=== PATIENT | male | born 1985 | race Caucasian/White ===

== ENCOUNTER 2023-02-13 16:19 | Emergency (ER) | payer MEDICARE, SELFPAY ==
[2023-02-13 16:47] VITALS: BP 124/62; PULSE 61; RESP 16; TEMP 37; O2SAT 100
--- NOTE | 2023-02-13 17:13 | ED.SKABFB ---
HPI - Skin/Abscess/Foreign Bdy General Chief complaint: Skin/Abscess/Foreign Body Stated complaint: Rash Time Seen by Provider: 02/13/23 17:13 Source: patient, RN notes reviewed and old records reviewed Mode of arrival: ambulatory Limitations: no limitations History of Present Illness HPI narrative: 37 year old male accompanied by his POA with complaints of patient having these red scaly lesions on the back of his head and neck for abount 10 days that are itchy and having some crusty drainage from area. 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 She states that areas have been cleansed with soap and water and some Neosporin has been applied. MD complaint: rash Onset (ago): day(s) (10) Location: head (posterior head area and neck) Quality: pruritic Associated symptoms: itching Treatments prior to arrival: other (cleansed with soap and water and Neosporin ointment applied) Related Data Home Medications Medication Instructions Recorded Confirmed cetirizine 10 mg tablet (Zyrtec) 10 mg PO DAILY 07/08/19 07/08/19 multivitamin with minerals-folic mg PO 07/08/19 acid 0.4 mg tablet (Adult One Daily Multivitamin) Allergies Allergy/AdvReac Type Severity Reaction Status Date / Time cefaclor Allergy Unknown Other Verified 02/13/23 17:00 Review of Systems Review of Systems: CONSTITUTIONAL: Denies fever, chills, or sweats. CARDIOVASCULAR: Denies chest pain, palpitations, or edema. RESPIRATORY: Denies cough or dyspnea. SKIN: Reports rash to the back of his neck and back of head irregular shaped with some crusting MUSCULOSKELETAL: Denies joint pain or myalgia. NEUROLOGIC: Denies headache, numbness, or weakness. All systems reviewed & are unremarkable except as noted in HPI and below PMFSH Past Medical History Medical History (Updated 02/15/23 @ 16:51 by Juany Sanz NP) Down syndrome high functioning Fracture of hand left Surgical History Surgical History (Updated 02/13/23 @ 17:17 by Juany Sanz NP) History of placement of ear tubes Family History Family History Father Asthma Family history of hypercholesterolemia Hypertension Social History Social History Smoking status: Never smoker Second hand tobacco smoke exposure: No Alcohol intake: never Comments At time of signature, agree with nursing past medical, surgical, social and family history. There is no relevant family history pertinent to the presenting complaint Exam Narrative: GENERAL: Well-appearing, well-nourished, and in no acute distress. HEAD: Normocephalic, atraumatic. EYES: PERRLA, conjunctivae clear, and EOMI. ENT: Mucous membranes moist. Oropharynx without edema, erythema or lesions. NECK: Supple. No lymphadenopathy CHEST: Clear to auscultation. No respiratory distress. HEART: Regular rate and rhythm. SKIN: Warm, dry.? Patches of irregular shaped lesions with some crusting and itching to sites.no present drainage noted. NEURO:? Alert and oriented x3. PSYCH: Normal mood and affect Course Course Emergency Course: Patient is aware of diagnosis, understands and agrees to treatment plan.? Anticipatory guidance given.? Patient agrees to follow-up as directed and is aware of reasons to seek care at the emergency department. Portions of this record may have been created with voice recognition software Level of Care: Express Care Visit Vital Signs Vital signs: Vital Signs Temperature 37.0 C 02/13/23 16:47 Pulse Rate 61 02/13/23 16:47 Respiratory Rate 16 02/13/23 16:47 Blood Pressure 124/62 02/13/23 16:47 Pulse Oximetry 100 02/13/23 16:47 Oxygen Delivery Room Air 02/13/23 16:47 Temperature 37.0 C 02/13/23 16:47 Pulse Rate 61 0
== END 2023-02-13 17:30 | disposition home or self-care (01) ==
PROVIDERS: Emergency Provider Registered Nurse; PCP Physician Assistant
DX: L01.00 Impetigo, unspecified (principal); Q90.9 Down syndrome, unspecified
CPT/HCPCS: 99213; G0463

== ENCOUNTER 2024-11-20 11:39 | Emergency (ER) | payer MEDICARE, MEDICAID, SELFPAY ==
--- NOTE | ~2024-11-20 | XR_ITS ---
EXAMINATION: XR chest 1V portable DATE: 11/20/2024 13:14 INDICATION: Stroke with right-sided facial droop TECHNIQUE: AP view of the chest was obtained. COMPARISON: None FINDINGS: The lungs are clear with no focal airspace opacities, pulmonary edema, pleural effusion or pneumothor ax. The cardiomediastinal silhouette is normal. Visualized bones and soft tissues are unremarkable. IMPRESSION: 1. No acute cardiopulmonary disease. Reviewed, dictated and finalized at location A.
--- NOTE | ~2024-11-20 | CT_ITS ---
CT ANGIOGRAM NECK AND HEAD History: Right-sided facial droop. Technique: Axial noncontrast imaging of the right performed. Serial spiral axial images through the h ead and neck were then obtained during arterial phase IV injection of 100 cc of Omnipaque 350. 3-D po stprocessing and MIP images were then reconstructed on the remote workstation. Dose reduction techniq ue was used on this scan by utilizing automated exposure control and iterative reconstruction techniq ue. The dose-length product (DLP) was 1519.15 mGy-cm. CTA neck findings: Bilateral vertebral arteries are patent. Bilateral common carotid, internal carot id, and external carotid arteries are patent. No large vessel occlusion or stenosis. No aneurysm. The proximal right internal carotid artery demonstrates 0% stenosis relative to the normal distal artery lumen diameter. The proximal left internal carotid artery demonstrates 0% stenosis relative to the n ormal distal artery lumen diameter. CTA head findings: Distal vertebral arteries, basilar artery, and posterior cerebral arteries are pat ent. Distal internal carotid arteries, middle cerebral arteries, and anterior cerebral arteries are p atent. No large vessel occlusion or stenosis. No aneurysm. Axial noncontrast imaging of the brain is unremarkable. No acute infarct, intracranial hemorrhage, or mass lesion seen. No mass effect or midline shift. Monet differentiation intact. The ventricles and s ubarachnoid spaces are unremarkable. Paranasal sinuses are clear. Calvarium intact. Impression: Unremarkable exam. Reviewed, dictated and finalized at location . Impression: Unremarkable exam.
[2024-11-20 11:45] VITALS: BP 128/81; PULSE 69; RESP 16; TEMP 36.8; O2SAT 98
[2024-11-20 11:54] VITALS: BP 128/81; PULSE 67; PULSE 70; RESP 14; O2SAT 98
--- NOTE | 2024-11-20 12:16 | ECG_ITS ---
Test Date: 2024-11-20 12:41:37 Measurements Intervals [place] Rate: 65 P: 10 TN: 163 QRS: 11 QRSD: 101 T: 4 QT: 374 QTc: 389 Interpretive Statements SINUS RHYTHM CONSIDER INFERIOR INFARCT, AGE INDETERMINATE BASELINE ARTIFACT- I, III, AVR, AVL, AVF ABNORMAL ECG Electronically Signed On 11-20-2024 12:51:28 CDT by Dank Peter D.O.
[2024-11-20 12:30] LABS: Glucose Point of Care 70 mg/dl (65-105)
[2024-11-20] MEDS: predniSONE 20 MG TABLET 80 MG PO (12:31)
[2024-11-20 12:36] LABS: Basophils Absolute Auto 0.1 K/mm3 (0.0-0.1); Basophils Percent Auto 1.1 % (0.2-1.2); Eosinophils Absolute Auto 0.1 K/mm3 (0-0.3); Eosinophils Percent Auto 1.1 % (0-4.4); Hematocrit 54.6 % (42.0-52.0); Hemoglobin 18.7 g/dL (14.0-18.0); Immature Granulocyte Absolute 0.02 K/mm3 (0.00-0.031); Immature Granulocyte Percent A 0.3 % (0-0.5); Lymphocytes Percent Auto 37.4 % (18.3-44.2); Mean Corpuscular HGB Conc 34.2 g/dl (32-36); Mean Corpuscular Hemoglobin 32.9 pg (26-34); Mean Platelet Volume 10.1 fl (7.4-10.4); Monocytes Absolute Auto 0.8 K/mm3 (0.1-0.6); Monocytes Percent Auto 11.7 % (2.6-8.5); Neutrophils Absolute Auto 3.1 K/mm3 (1.3-6.7); Neutrophils Percent Auto 48.4 % (45.5-73.1); Platelet Count Result 173 k/mm3 (150-375); Red Blood Count 5.69 M/mm3 (4.6-6.20); Red Cell Distribution Width 13.2 % (11.5-14.5); White Blood Count 6.4 K/mm3 (4.5-10.0)
[2024-11-20 12:48] VITALS: BP 125/80; PULSE 66; RESP 14; O2SAT 99
[2024-11-20 12:55] LABS: Alanine Aminotransferase 61 U/L (6-50); Albumin Level 4.4 g/dL (3.5-5.1); Alkaline Phosphatase 77 U/L (38-126); Anion Gap 11 mmol/L (4-12); Aspartate Amino Transferase 35 U/L (17-59); Bilirubin,Total 0.6 mg/dL (0.2-1.3); Blood Urea Nitrogen 18 mg/dL (9-20); Calcium 9.4 mg/dL (8.4-10.2); Carbon Dioxide 27 mmol/L (22-30); Chloride 104 mmol/L (98-107); Estimated CRCL calculation 105 ml/min; Estimated Glomerular Filt Rate > 60; Glucose 75 mg/dL (65-110); Magnesium 2.3 mg/dL (1.6-2.3); Potassium 3.9 mmol/L (3.4-5.0); Sodium 142 mmol/L (137-145); Total Protein 7.7 g/dL (6.3-8.2)
--- OUTSIDE RECORDS SUMMARY | 2024-11-20 13:12 | XMS_ITS | Referral Summary ---
Author Organization [facility] [place] [address] [facility] Address [address] [place] [address] Care Team Providers Care Manager Sterile Name Role Phone Maday Oliveros Primary Care Provider [phone]- [phone] Encounters Date Type Department Care Team Description 08/22/2024 Results Follow-Up [facility] Internal Medicine at [place] [address] [facility] [address] [place] [address] Maday Oliveros PA MMR (IGG) PANEL (MEASLES, MUMPS, RUBELLA) from Last 3 Months Allergies No known active allergies Medications ascorbic acid (VITAMIN C) 500 mg tablet,chewable Acti ve multivitamin capsule Take 1 capsule by mouth daily Active cetirizine (ZyrTEC) 10 mg tablet Take 1 tablet (10 mg total) by mouth daily Active coenzyme Q10 200 mg capsule Take 1 capsule (200 mg total) by mouth daily Active mupirocin (BACTROBAN) 2 % ointmentIndicat ions:Folliculit is Apply topically 3 (three) times a day 22 g 03/29/20 23 Active sulfacetamide (BLEPH-10) 10 % ophthalmic solutionIndicat ions:[place] eye disease, unspecified laterality One drop into affected eye QID x 7 days 15 mL 11/11/19 24 Active rosuvastatin (CRESTOR) 5 mg tablet TAKE 1 TABLET(5 MG) BY MOUTH DAILY 90 tablet 2 03/15/20 24 Active fluticasone propionate (FLONASE) 50 mcg/actuation nasal spray SHAKE LIQUID AND USE 2 SPRAYS IN EACH NOSTRIL DAILY 16 g 1 08/07/19 25 Active triamcinolone (KENALOG) 0.1 % cream Apply to affected area 1-2 times daily as needed. 30 g 1 08/15/19 25 025 Active scopolamine 1 mg over 3 days patch [address] 1 patch on the skin every third day as needed (nausea) 4 patch 1 08/15/19 25 Active valACYclovir (VALTREX) 1 gram tablet TAKE 1 TABLET(1000 MG) BY MOUTH DAILY 90 tablet 1 10/31/19 25 Active valACYclovir (VALTREX) 1 gram tablet TAKE 1 TABLET(1000 MG) BY MOUTH DAILY 90 tablet 1 05/03/20 24 025 Discontinued Active Problems Problem Noted Date Diagnosed Date Immunity status testing 08/26/2024 Assessment & Plan (08/28/2024 12:25 AM CDT): Patient's guardian is concerned about measles exposure and would like to confirm immunity. Will check IgG 4 MMR Obesity (BMI 30-39.9) 03/29/2023 Assessment & Plan (08/14/2024 8:39 AM VOICE NETWORK ENGINEER): Discussed the patient's BMI. The BMI is above average. BMI management plan is completed. BMI Follow-up includes: nutrition counseling, exercise counseling and education provided. Assessment & Plan (03/29/2023 9:07 AM CDT): Discussed the patient's BMI. The BMI is above average. BMI management plan is completed. BMI Follow-up includes: nutrition counseling, exercise counseling and education provided. Abnormal CBC 03/29/2023 Assessment & Plan (08/28/2024 12:25 AM CDT): This is a significant, separately identifiable problem that was evaluated and managed on the same day as the wellness exam Patient has had increasingly elevated hemoglobin hematocrit. 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 This usually pulls out hemochromatosis. Liver ultrasound did not show any acute abnormalities. Will discuss further with Dr. Whitehead and to develop a plan to determine specialty referral as could consider hepatology versus hematology. Assessment & Plan (05/29/2024 12:07 PM VOICE NETWORK ENGINEER): Patient has had an abnormal CBC with elevated hemoglobin hematocrit. Patient is heterozygous for hemochromatosis gene. It does appear that he may be snoring iron. He has no symptoms. No icterus or jaundice. Will plan to get iron panel when he returns from [place] as he is going there for the holidays. Assessment & Plan (03/29/2023 9:37 AM CDT): Patient's hemoglobin hematocrit are upper end of normal and elevated even a little more this last draw. Will check 1 more time. Patient does eat a lot of meat. Will through an iron panel on also. Guardian is not sure if there is any history of hemochromatosis Folliculitis 03/29/2023 Assessment & Plan (08/28/2024 12:25 AM CDT): This is a significant, separately identifiable problem that was evaluated and managed on the same day as the wellness exam Folliculitis as the base of the brar. He has responded well to steroid creams in the past so patient requests. If it persists may need to have little antifungal. Assessment & Plan (03/29/2023 9:37 AM CDT): Folliculitis on the back of the neck. Responded well to Bactroban after a course of Keflex. Will provided additional tube Medicare annual wellness visit, initial 12/21/19 Assessment & Plan (08/28/2024 12:23 AM CDT): Encouraged healthy lifestyle, good nutrition and exercise. Encouraged Calcium and Vitamin D and weight bearing exercise for bone health. Reviewed immunizations. Reviewed age appropirate screenings. Medicare Wellness Documentation is completed within the chart Assessment & Plan (12/20/2022 5:57 PM CDT): Encouraged healthy lifestyle, good nutrition and exercise. Encouraged Calcium and Vitamin D and weight bearing exercise for bone health. Reviewed immunizations. Reviewed age appropirate screenings. Medicare Wellness Documentation is completed within the chart BMI 32.0-32.9,adult 04/20/2022 Assessment & Plan (08/14/2024 8:38 AM VOICE NETWORK ENGINEER): Discussed the patient's BMI. The BMI is above average. BMI management plan is completed. BMI Follow-up includes: nutrition counseling, exercise counseling and education provided. Assessment & Plan (04/20/2022 7:12 AM VOICE NETWORK ENGINEER): BMI Follow-up includes: Discussed diet and exercising counseling. History of 2019 novel coronavirus disease (COVID -19) 08/16/2021 Overview (08/16/2021): 06/2021 Assessment & Plan (08/16/2021 8:22 PM VOICE NETWORK ENGINEER): He is fully recovered from the COVID he had a few months ago while in [place]. He is guarding 1 make sure his lungs were clear they are. Continue to monitor follow-up if there are any more concerns Scalp lesion 05/11/2021 Assessment & Plan (05/11/2021 3:53 PM VOICE NETWORK ENGINEER): Refer to Derm for further evaluation Cracked lips 02/09/2021 Assessment & Plan (02/09/2021 9:39 AM CDT): Suspect secondary to him licking them and with Downs, difficult for him not to. Will have ENT address to see if has any other ideas since I am referring for hearing evaluation. 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 Continue daily suppression. Assessment & Plan (08/27/2020 9:28 AM CDT): [id number] are + for IgG --- Discussed using antiviral for prevention. Valtrex 500mg one daily Hyperglycemia 08/18/2020 Assessment & Plan (08/28/2024 12:23 AM CDT): Pre-diabetes/hyperglycemia is a precursor to Dm. Stressed importance of working on diet (decrease your simple sugars and one carbohydrate with each meal) and increase you exercise to achieve weight loss and this will help prevent you from progressing to diabetes. Assessment & Plan (12/20/2022 5:58 PM CDT): Pre-diabetes/hyperglycemia is a precursor to Dm. Stressed importance of working on diet (decrease your simple sugars and one carbohydrate with each meal) and increase you exercise to achieve weight loss and this will help prevent you from progressing to diabetes. Assessment & Plan (08/16/2021 8:22 PM VOICE NETWORK ENGINEER): Check labs Assessment & Plan (08/18/2020 8:13 PM VOICE NETWORK ENGINEER): Pre-diabetes/hyperglycemia is a precursor to Dm. Stressed importance of working on diet (decrease your simple sugars and one carbohydrate with each meal) and increase you exercise to achieve weight loss and this will help prevent you from progressing to diabetes. Fatigue 08/18/2020 Assessment & Plan (12/20/2022 5:58 PM CDT): Probably multifactorial. Check labs and followup to re-evaluate Assessment & Plan (08/16/2021 8:22 PM VOICE NETWORK ENGINEER): Probably multifactorial. Check labs and followup to re-evaluate Assessment & Plan (08/18/2020 8:13 PM VOICE NETWORK ENGINEER): Probably multifactorial. Check labs and followup to re-evaluate Lip lesion 08/18/2020 Assessment & Plan (08/27/2020 9:26 AM CDT): Suspect HSV Assessment & Plan (08/18/2020 8:24 PM VOICE NETWORK ENGINEER): Unknown etiology---HSV vs angioedema vs allergies vs parotitis vs other cause. Will check HSV IgG and IgM for 1 and 2. If positive, will consider Valtrex for prevention of cold sores. Start antibiotic due to possible parotitis. Discussed warning signs of breathing issues/angioedema/allergies If notes any, he is to go to the ER. Continue Zyrtec. Start singulair and monitor closely. May consider referral for another opinion regarding sxs pending labs and response to medication. Seasonal allergies 02/04/2020 Assessment & Plan (03/30/2020 1:11 PM CDT): Continue otc regimen Assessment & Plan (02/04/2020 1:29 PM CDT): Continue otc regimen Mixed hyperlipidemia 02/04/2020 Assessment & Plan (08/28/2024 12:23 AM CDT): Encouraged patient to follow low fat/low chol diet like the Mediterranean diet. Increase good fats in the diet. Increase exercise. Monitor labs as needed. Continue Crestor 5 Assessment & Plan (03/29/2023 9:38 AM CDT): orEncouraged patient to follow low fat/low chol diet like the Mediterranean diet. Increase good fats in the diet. Increase exercise. Monitor labs as needed. Assessment & Plan (12/20/2022 5:57 PM CDT): Encouraged patient to follow low fat/low chol diet like the Mediterranean diet. Increase good fats in the diet. Increase exercise. Monitor labs as needed. Continue Crestor and Co Q10 Assessment & Plan (04/26/2022 5:34 PM VOICE NETWORK ENGINEER): Encouraged patient to follow low fat/low chol diet like the Mediterranean diet. Increase good fats in the diet. Increase exercise. Monitor labs as needed. Crestor 5mg Assessment & Plan (08/16/2021 8:22 PM VOICE NETWORK ENGINEER): Check labs Assessment & Plan (02/09/2021 9:38 AM CDT): Encouraged patient to follow fat/low chol diet like the Mediterranean diet. Increase good fats in the diet. Increase exercise. Monitor labs as needed. Continue crestor Assessment & Plan (08/27/2020 9:21 AM CDT): Encouraged patient to follow fat/low chol diet like the Mediterranean diet. Increase good fats in the diet. Increase exercise. Monitor labs as needed. Will start Crestor and CoQ10. Reviewed risks, benefit, alternatives, side effects and proper use. Recheck labs in 4 months to reassess Assessment & Plan (08/18/2020 8:13 PM VOICE NETWORK ENGINEER): Encouraged patient to follow fat/low chol diet like the Mediterranean diet. Increase good fats in the diet. Increase exercise. Monitor labs as needed. Assessment & Plan (03/30/2020 1:11 PM CDT): Encouraged patient to follow fat/low chol diet like the Mediterranean diet. Increase good fats in the diet. Increase exercise. Monitor labs as needed. Working on weight loss and doing well Assessment & Plan (02/04/2020 1:27 PM CDT): Encouraged patient to continue low fat/low chol diet. Continue exercise. Increase good fats in the diet. Monitor labs as needed. Down syndrome 11/23/2019 Assessment & Plan (08/28/2024 12:23 AM CDT): No change in his down syndrome. He is in a safe loving home with his guardians. He is very active with work as well as social activities. Assessment & Plan (12/20/2022 5:58 PM CDT): No change in his down syndrome. He is in a safe loving home with his guardians. He is very active with work as well as social activities. Assessment & Plan (04/26/2022 5:34 PM VOICE NETWORK ENGINEER): No change in status Assessment & Plan (05/11/2021 3:53 PM VOICE NETWORK ENGINEER): No change Assessment & Plan (02/09/2021 9:38 AM CDT): No change Assessment & Plan (08/27/2020 9:26 AM CDT): No changes Assessment & Plan (03/30/2020 1:11 PM CDT): No change Assessment & Plan (02/04/2020 1:30 PM CDT): Discussed with guardian at length the concerns about Josh being in a physical relationship and how that would affect them both. Encouraged to consider counseling for both as there are many ethical issues that also come into play. I will attempt to find an appropriate counselor and encourage them to contact the [facility] in [place]. Still awaiting records from previous PCP for immunizations, etc. Assessment & Plan (11/25/2019 1:57 PM CDT): No change Resolved Problems Problem Noted Date Diagnosed Date Resolved Date Acute right otitis media 05/29/2024 Assessment & Plan (05/29/2024 12:08 PM VOICE NETWORK ENGINEER): Patient has right otitis media. He is leaving for [place] at the end of the week and may have difficulty taking meds while he is there. Will go ahead and put him on Z-Bienvenido as directed. Continue eupy-iji-finwriz cough cold medicine as needed. Call if symptoms worsen or do not resolve He also notices a drippy nose. Will send out some Flonase Acute cough 05/29/2024 08/26/2024 Assessment & Plan (05/29/2024 12:08 PM VOICE NETWORK ENGINEER): COVID and flu a and B were negative today in the office BMI 33.0-33.9,adult 03/29/2023 08/27/19 25 Assessment & Plan (03/29/2023 9:07 AM CDT): Discussed the patient's BMI. The BMI is above average. BMI management plan is completed. BMI Follow-up includes: nutrition counseling, exercise counseling and education provided. Need for immunization against influenza 03/29/2023 08/26/2024 Assessment & Plan (03/29/2023 9:37 AM CDT): Flu vaccine updated in the office today Obesity (BMI 30-39.9) 12/16/20222022 Assessment & Plan (12/20/2022 5:57 PM CDT): Discussed the patient's BMI. The BMI is above average. BMI management plan is completed. BMI Follow-up includes: nutrition counseling, exercise counseling and education provided. Encouraged increased exercise as he is not as active as he had been. BMI 33.0-33.9,adult 12/16/2022 03/29/20 Assessment & Plan (12/16/2022 3:48 PM CDT): Discussed the patient's BMI. The BMI is above average. BMI management plan is completed. BMI Follow-up includes: nutrition counseling, exercise counseling and education provided. Dysfunction of both eustachian tubes 07/15/2022 08/28/2024 Assessment & Plan (01/18/2023 7:04 PM CDT): Both ears look fine. Tubes are in good position. Needs no intervention. Follow- up in 6 months. Assessment & Plan (07/15/2022 8:14 PM VOICE NETWORK ENGINEER): The tubes look like they are functioning well and I do not find any significant problems. I recommended a follow-up in 6 months. Impacted cerumen of left ear 07/15/2022 08/28/2024 Assessment & Plan (07/15/2022 8:14 PM VOICE NETWORK ENGINEER): This was cleaned without difficulty mostly using suction and a loop. He tolerated well. Everything looks good. Obesity (BMI 30-39.9) 07/10/20212022 Assessment & Plan (04/20/2022 7:12 AM VOICE NETWORK ENGINEER): BMI Follow-up includes: Discussed diet and exercising counseling. Assessment & Plan (07/10/2021 2:17 PM VOICE NETWORK ENGINEER): Obesity is unchanged. Discussed the patient's BMI. The BMI is above average. BMI management plan is completed. BMI Follow-up includes: nutrition counseling, exercise counseling and education provided. BMI 33.0-33.9,adult 07/10/2021 04/20/20 Assessment & Plan (07/10/2021 2:17 PM VOICE NETWORK ENGINEER): Obesity is unchanged. Discussed the patient's BMI. The BMI is above average. BMI management plan is completed. BMI Follow-up includes: nutrition counseling, exercise counseling and education provided. Obesity (BMI 30-39.9) 04/23/20212021 Assessment & Plan (04/23/2021 3:37 PM VOICE NETWORK ENGINEER): Obesity is unchanged. Discussed the patient's BMI. The BMI is above average. BMI management plan is completed. BMI Follow-up includes: nutrition counseling, exercise counseling and education provided. BMI 33.0-33.9,adult 04/23/2021 07/10/19 22 Assessment & Plan (04/23/2021 3:37 PM VOICE NETWORK ENGINEER): Obesity is unchanged. Discussed the patient's BMI. The BMI is above average. BMI management plan is completed. BMI Follow-up includes: nutrition counseling, exercise counseling and education provided. Obesity (BMI 30-39.9) 02/03/20212020 Assessment & Plan (02/03/2021 4:43 PM CDT): Obesity is unchanged. Discussed the patient's BMI. The BMI is above average. BMI management plan is completed. BMI Follow-up includes: nutrition counseling, exercise counseling and education provided. BMI 33.0-33.9,adult 02/03/2021 04/23/20 21 Assessment & Plan (02/03/2021 4:44 PM CDT): Obesity is unchanged. Discussed the patient's BMI. The BMI is above average. BMI management plan is completed. BMI Follow-up includes: nutrition counseling, exercise counseling and education provided. Hordeolum externum of right lower eyelid 11/13/2020 02/09/2021 Assessment & Plan (11/13/2020 3:38 PM CDT): Advised washing face and eyelids twice daily. Advised antibiotic x7 days. We discussed follow-up if symptoms are not improving, sooner if worsening. BMI 33.0-33.9,adult 08/27/2020 02/04/20 Assessment & Plan (11/13/2020 2:05 PM CDT): Obesity is unchanged. Discussed the patient's BMI. The BMI is above average. BMI management plan is completed. BMI Follow-up includes: nutrition counseling, exercise counseling and education provided. Assessment & Plan (08/27/2020 8:05 AM CDT): Obesity is unchanged. Discussed the patient's BMI. The BMI is above average. BMI management plan is completed. BMI Follow-up includes: nutrition counseling, exercise counseling and education provided. Obesity (BMI 30-39.9) 08/27/20202020 Assessment & Plan (11/13/2020 2:05 PM CDT): Obesity is unchanged. Discussed the patient's BMI. The BMI is above average. BMI management plan is completed. BMI Follow-up includes: nutrition counseling, exercise counseling and education provided. Assessment & Plan (08/27/2020 8:04 AM CDT): Obesity is unchanged. Discussed the patient's BMI. The BMI is above average. BMI management plan is completed. BMI Follow-up includes: nutrition counseling, exercise counseling and education provided. Obesity (BMI 30-39.9) 08/12/20202020 Assessment & Plan (08/12/2020 9:05 AM VOICE NETWORK ENGINEER): Obesity is unchanged. Discussed the patient's BMI. The BMI is above average. BMI management plan is completed. BMI Follow-up includes: nutrition counseling, exercise counseling and education provided. BMI 33.0-33.9,adult 08/12/2020 08/28/19 21 Assessment & Plan (08/12/2020 9:05 AM VOICE NETWORK ENGINEER): Obesity is unchanged. Discussed the patient's BMI. The BMI is above average. BMI management plan is completed. BMI Follow-up includes: nutrition counseling, exercise counseling and education provided. Annual physical exam 07/23/2020 022 Assessment & Plan (02/09/2021 9:40 AM CDT): Encouraged healthy lifestyle, good nutrition and exercise. Encouraged Calcium and Vitamin D and weight bearing exercise for bone health. Reviewed immunizations Reviewed age appropirate screenings. Flu vaccine need 03/30/2020 07/23/2020 Assessment & Plan (03/30/2020 1:11 PM CDT): Updated in office today Other fatigue 11/25/2019 02/04/2020 Assessment & Plan (11/25/2019 1:57 PM CDT): Check labs Diabetes mellitus screening 11/25/2019 02/04/2020 Assessment & Plan (11/25/2019 1:58 PM CDT): Check labs Lipid screening 11/25/2019 02/04/2020 Assessment & Plan (11/25/2019 1:58 PM CDT): Check labs Acute swimmer's ear of right side 11/25/2019 02/04/2020 Assessment & Plan (11/25/2019 1:57 PM CDT): Keep ear dry. Recommend ear plugs due to the Downs anatomy. Cortisporin otic x 1 week. Call if sxs worsen or don't resolve. Immunizations Immunization Administration Dates Next Due COVID-19 mRNA (PFIZER) 0.3 m L (30 mcg) vaccine (12 years and up) 03/07/2024 DTaP 5 Pertussis 09/30/1990, 9,01/18/1987,08/03,05/18/1986 Hep B, Adolescent or Pediatric 04/28/1996,1995 Hep B, Unspecified 10/13/1996,04/28/1996, 996 HiB 02/22/1989 Influenza, Quadrivalent, Spl it, Intramuscular 03/27/2019 Influenza, Quadrivalent, Spl it, Preservative Free, Intramuscular 03/29/2023,04/13/2022,05/01/2021,03/30,03/27/2019,04/01/2018 Influenza, Trivalent, Preser vative Free, Intramuscular 04/03/2024,04/07/2016 Influenza, Unspecified 04/01/2018 MMR 12/12/1991,07/17/1988 OPV 09/30/1990, 7,1985,08/11,1985 Pfizer SARS-CoV-2 Monovalent Vaccination (12+ Yrs) PURPLE 03/23/2023,08/07/2022,01/23/2022,09/17,08/26/2020 Td, adsorbed 04/08/2018,03/03/2002 Tdap 10/04/2018 Social History Tobacco Use Types Packs/Day Years Used Date Smoking Tobacco: Never Smokeless Tobacco: Never Tobacco Cessation:Counseling Given: Not Answered Alcohol Use Standard Drinks/Week Comments Yes 1 (1 standard drink = 0.6 oz pur e alcohol) rarely AUDIT-C Answer Date Recorded Q1: How often do you have a drink containing alcohol? Never 08/14/2024 Q2: How many drinks containi ng alcohol do you have on a typical day when you are drinking? Patient does not drink Q3: How often do you have si x or more drinks on one occasion? Never 08/14/2024 PHQ-2 Answer Date Recorded PHQ-2 Total Score (If total score is 3 or more points, staff should administer the PHQ-9) 0 08/14/2024 Sex and Gender Information Value Date Recorded Sex Assigned at Not on file Legal Sex Male 11:23 PM VOICE NETWORK ENGINEER Gender Identity Not on file Sexual Orientation Not on file Occupation Industry Job Start Date Job End Date Disabed Not on file Not on file Not on file Last Filed Vital Signs Vital Sign Reading Time Taken Comments Blood Pressure 118/60 08/14/2024 8:34 AM VOICE NETWORK ENGINEER Pulse 71 08/14/2024 8:34 AM VOICE NETWORK ENGINEER Temperature 37.1 C (98.8 F) 08/14/2024 8:34 AM VOICE NETWORK ENGINEER Respiratory Rate 24 05/29/2024 10:29 AM VOICE NETWORK ENGINEER Oxygen Saturation 95% 08/14/2024 8:34 AM VOICE NETWORK ENGINEER Inhaled Oxygen Concentration - - Weight 89.8 kg (198 lb) 08/14/2024 8:34 AM VOICE NETWORK ENGINEER Height 165.1 cm (5' 5) 08/14/2024 8:34 AM VOICE NETWORK ENGINEER Body Mass Index 32.95 08/14/2024 8:34 AM VOICE NETWORK ENGINEER Plan of Treatment Not on file Procedures Procedure Name Priority Date/Time Associated Diagnosis Comments MMR (IGG) PANEL (MEASLES, MUMPS, RUBELLA) Routine 08/21/2024 1:57 PM CDT Immunity status testing from Last 3 Months Results * (ABNORMAL) MMR (IGG) PANEL (MEASLES, MUMPS, RUBELLA) (08/21/2024 1:57 PM CDT) Measles (Rubeola) IgG 48.40 AU/mL [facility] Comment: AU/mL Interpretation ----- <13.50 Not consistent with immunity 13.50-16.49 Equivocal >16.49 Consistent with immunity The presence of measles IgG suggests immunization or past or current infection with measles virus. For additional information, please refer to http://education.Element ID/faq/XYS446 (This link is being provided for informational/ educational purposes only.) Mumps IgG <9.00(L) AU/mL [facility] Comment: AU/mL Interpretation ------- <9.00 Not consistent with immunity 9.00-10.99 Equivocal >10.99 Consistent with immunity The presence of mumps IgG antibody suggests immunization or past or current infection with mumps virus. Rubella IgG 0.99(L) Index [facility] Comment: Index Interpretation ----- <0.90 Not consistent with immunity 0.90-0.99 Equivocal > or = 1.00 Consistent with immunity The presence of rubella IgG antibody suggests immunization or past or current infection with rubella virus. Blood 08/21/2024 1:57 PM CDT 08/21/2024 1:58 PM CDT Narrative [facility] - 08/22/2024 6:06 AM CDT FASTING:NO FASTING: NO Maday [facility] BLOOD ORDERABLES Final Result [facility] [id number] [facility] [place] [address] from Last 3 Months Insurance MEDICARE [facility] MEDICARE [facility] MEDICARE Care Teams Manager Sterile Relationship Specialty Start Date End Date Maday Oliveros PA [address] [facility] [address] [place], [place] [id number] PCP - General Internal Medicine 11/23/19
--- OUTSIDE RECORDS SUMMARY | 2024-11-20 13:12 | XMS_ITS | Continuity of Care Document ---
Author Organization [facility] [place] Address [address] [place] [address] [place] [address] Phone Care Team Providers Care Power Shovel Operator Helper Name Role Phone Mari Lionhil Unavailable Unavailable Procedures Procedure Date Eye Exam, New Patient Advance Directives Directive Yes / No Effective Date File Name No Information Encounters Encounter Description Practice Location Reason(s) For Visit Diagnoses Date Provider Providers Copied on Encounter [facility], [id number] [place] [address] [address], [place], [place], [id number], [place] tel:[phone] [facility] No Information [address] [facility] [address], [address], [place]. tel:[phone] Referring Provider: Salazar Yeh OD, [address], [address]. tel:[phone] Family History Family Member Type Diagnosis Age At Onset No Information Payers Payer name Insurance type Covered alliance party ID Authoriza tion(s) Medicaid [facility] [id number] Social History Type Description Quantity Date Captured Comments Sex Male Smoking Status No Information Chief Complaint And Reason For Visit No Information Reason For Referral Reason For Referral No Information History Of Present Illness Encounter Date Complaint History Of Prese nt Illness No Information Functional Status Date Functional Assessmen t No Information Instructions Date Instruction Additional Infor mation No Information Assessments Type Assessment Date No Information Patient Care Teams Name Effective Dates (start - stop) Status Members No Information
--- OUTSIDE RECORDS SUMMARY | 2024-11-20 13:12 | XMS_ITS | Clinical Summary ---
Author Organization [facility] Address [address] [place] [address] Care Team Providers Care Insurance And Financial Services Agent Name Role Phone Maday Oliveros Primary Care Provider [phone] Allergies No known active allergies Medications ascorbic [...] Active sulfacetamide (BLEPH-10) 10 % ophthalmic solutionIndicat ions:[place] eye disease, unspecified laterality One drop into [...] 03/29/2023 Assessment & Plan (08/14/2024 8:39 AM CAR CONSTRUCTION SUPERINTENDENT): Discussed the patient's BMI. The BMI is [...] hematology. Assessment & Plan (05/29/2024 12:07 PM CAR CONSTRUCTION SUPERINTENDENT): Patient has had an abnormal CBC with elevated hemoglobin hematocrit. Patient is heterozygous for hemochromatosis gene. It does appear that he may be snoring iron. He has no symptoms. No icterus or jaundice. Will plan to get iron panel when he returns from [place] as he is going there for the [...] 04/20/2022 Assessment & Plan (08/14/2024 8:38 AM CAR CONSTRUCTION SUPERINTENDENT): Discussed the patient's BMI. The BMI is above average. BMI management plan is completed. BMI Follow-up includes: nutrition counseling, exercise counseling and education provided. Assessment & Plan (04/20/2022 7:12 AM CAR CONSTRUCTION SUPERINTENDENT): BMI Follow-up includes: Discussed diet and exercising counseling. History of 2019 novel coronavirus disease (COVID -19) 08/16/2021 Overview (08/16/2021): 06/2021 Assessment & Plan (08/16/2021 8:22 PM CAR CONSTRUCTION SUPERINTENDENT): He is fully recovered from the COVID he had a few months ago while in [place]. He is guarding 1 make sure his lungs were clear they are. Continue to monitor follow-up if there are any more concerns Scalp lesion 05/11/2021 Assessment & Plan (05/11/2021 3:53 PM CAR CONSTRUCTION SUPERINTENDENT): Refer to Derm for further evaluation Cracked [...] daily Assessment & Plan (05/11/2021 3:53 PM CAR CONSTRUCTION SUPERINTENDENT): Increase Valtrexv to 1gm daily Keep lips moist and try to stop licking. 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 Continue daily suppression. Assessment & Plan (08/27/2020 9:28 AM CDT): [id number] are + for IgG --- Discussed using [...] diabetes. Assessment & Plan (08/16/2021 8:22 PM CAR CONSTRUCTION SUPERINTENDENT): Check labs Assessment & Plan (08/18/2020 8:13 PM CAR CONSTRUCTION SUPERINTENDENT): Pre-diabetes/hyperglycemia is a precursor to Dm. Stressed importance of working on diet (decrease your simple sugars and one carbohydrate with each meal) and increase you exercise to achieve weight loss and this will help prevent you from progressing to diabetes. Fatigue 08/18/2020 Assessment & Plan (12/20/2022 5:58 PM CDT): Probably multifactorial. Check labs and followup to re-evaluate Assessment & Plan (08/16/2021 8:22 PM CAR CONSTRUCTION SUPERINTENDENT): Probably multifactorial. Check labs and followup to re-evaluate Assessment & Plan (08/18/2020 8:13 PM CAR CONSTRUCTION SUPERINTENDENT): Probably multifactorial. 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 Increase good fats in the diet. Increase exercise. Monitor labs as needed. Crestor 5mg Assessment & Plan (08/16/2021 8:22 PM CAR CONSTRUCTION SUPERINTENDENT): Check labs Assessment & Plan (02/09/2021 9:38 [...] reassess Assessment & Plan (08/18/2020 8:13 PM CAR CONSTRUCTION SUPERINTENDENT): Encouraged patient to follow fat/low chol diet [...] activities. Assessment & Plan (04/26/2022 5:34 PM CAR CONSTRUCTION SUPERINTENDENT): No change in status Assessment & Plan (05/11/2021 3:53 PM CAR CONSTRUCTION SUPERINTENDENT): No change Assessment & Plan (02/09/2021 9:38 [...] counselor and encourage them to contact the [facility] in [place]. Still awaiting records from previous PCP for immunizations, etc. Assessment & Plan (11/25/2019 1:57 PM CDT): No change Resolved Problems Problem Noted Date Diagnosed Date Resolved Date Acute right otitis media 05/29/2024 Assessment & Plan (05/29/2024 12:08 PM CAR CONSTRUCTION SUPERINTENDENT): Patient has right otitis media. He is leaving for [place] at the end of the week and may have difficulty taking meds while he is there. Will go ahead and put him on Z-Bienvenido as directed. Continue ojez-ogk-xhdlvyd cough cold medicine as needed. Call if symptoms worsen or do not resolve He also notices a drippy nose. Will send out some Flonase Acute cough 05/29/2024 08/26/2024 Assessment & Plan (05/29/2024 12:08 PM CAR CONSTRUCTION SUPERINTENDENT): COVID and flu a and B were [...] he had been. BMI 33.0-33.9,adult 12/16/2022 03/29/20 23 Assessment & Plan (12/16/2022 3:48 PM CDT): [...] months. Assessment & Plan (07/15/2022 8:14 PM CAR CONSTRUCTION SUPERINTENDENT): The tubes look like they are functioning well and I do not find any significant problems. I recommended a follow-up in 6 months. Impacted cerumen of left ear 07/15/2022 08/28/2024 Assessment & Plan (07/15/2022 8:14 PM CAR CONSTRUCTION SUPERINTENDENT): This was cleaned without difficulty mostly using suction and a loop. He tolerated well. Everything looks good. Obesity (BMI 30-39.9) 07/10/20212022 Assessment & Plan (04/20/2022 7:12 AM CAR CONSTRUCTION SUPERINTENDENT): BMI Follow-up includes: Discussed diet and exercising counseling. Assessment & Plan (07/10/2021 2:17 PM CAR CONSTRUCTION SUPERINTENDENT): Obesity is unchanged. Discussed the patient's BMI. The BMI is above average. BMI management plan is completed. BMI Follow-up includes: nutrition counseling, exercise counseling and education provided. BMI 33.0-33.9,adult 07/10/2021 04/20/20 Assessment & Plan (07/10/2021 2:17 PM CAR CONSTRUCTION SUPERINTENDENT): Obesity is unchanged. Discussed the patient's BMI. The BMI is above average. BMI management plan is completed. BMI Follow-up includes: nutrition counseling, exercise counseling and education provided. Obesity (BMI 30-39.9) 04/23/20212021 Assessment & Plan (04/23/2021 3:37 PM CAR CONSTRUCTION SUPERINTENDENT): Obesity is unchanged. Discussed the patient's BMI. The BMI is above average. BMI management plan is completed. BMI Follow-up includes: nutrition counseling, exercise counseling and education provided. BMI 33.0-33.9,adult 04/23/2021 07/10/19 Assessment & Plan (04/23/2021 3:37 PM CAR CONSTRUCTION SUPERINTENDENT): Obesity is unchanged. Discussed the patient's BMI. [...] 08/12/20202020 Assessment & Plan (08/12/2020 9:05 AM CAR CONSTRUCTION SUPERINTENDENT): Obesity is unchanged. Discussed the patient's BMI. The BMI is above average. BMI management plan is completed. BMI Follow-up includes: nutrition counseling, exercise counseling and education provided. BMI 33.0-33.9,adult 08/12/2020 08/28/19 Assessment & Plan (08/12/2020 9:05 AM CAR CONSTRUCTION SUPERINTENDENT): Obesity is unchanged. Discussed the patient's BMI. [...] Call if sxs worsen or don't resolve. Encounters Date Type Department Care Team Description 08/22/2024 Results Follow-Up [facility] [place] [address] [place] [address] [address] [place] [address] Maday Oliveros PA MMR (IGG) PANEL (MEASLES, MUMPS, RUBELLA) from Last 3 Months Immunizations Immunization Administration Dates Next Due COVID-19 [...] Unspecified 04/01/2018 MMR 12/12/1991,07/17/1988 OPV 09/30/1990, 7,1985,08/11,1985 [place] SARS-CoV-2 Monovalent Vaccination (12+ Yrs) PURPLE 03/23/2023,08/07/2022,01/23/2022,09/17,08/26/2020 Td, adsorbed 04/08/2018,03/03/2002 Tdap 10/04/2018 Surgical History Surgery Date Site/Laterality Comments TYMPANOSTOMY TUBE PLACEMENT Medical History Medical History Date Comments Allergic rhinitis Down syndrome Ear problems HL (hearing loss) Family History Medical History Relation Name Comments Asthma Father Breast cancer Mother Relation Name Status Comments Father Mother Alive Social History Tobacco Use Types Packs/Day Years [...] on file Legal Sex Male 11:23 PM CAR CONSTRUCTION SUPERINTENDENT Gender Identity Not on file Sexual Orientation Not on file Occupation Industry Job Start Date Job End Date Disabed Not on file Not on file Not on file Obstetrics History Last Filed Vital Signs Vital Sign Reading Time Taken Comments Blood Pressure 118/60 08/14/2024 8:34 AM CAR CONSTRUCTION SUPERINTENDENT Pulse 71 08/14/2024 8:34 AM CAR CONSTRUCTION SUPERINTENDENT Temperature 37.1 C (98.8 F) 08/14/2024 8:34 AM CAR CONSTRUCTION SUPERINTENDENT Respiratory Rate 24 05/29/2024 10:29 AM CAR CONSTRUCTION SUPERINTENDENT Oxygen Saturation 95% 08/14/2024 8:34 AM CAR CONSTRUCTION SUPERINTENDENT Inhaled Oxygen Concentration - - Weight 89.8 kg (198 lb) 08/14/2024 8:34 AM CAR CONSTRUCTION SUPERINTENDENT Height 165.1 cm (5' 5) 08/14/2024 8:34 AM CAR CONSTRUCTION SUPERINTENDENT Body Mass Index 32.95 08/14/2024 8:34 AM CAR CONSTRUCTION SUPERINTENDENT Plan of Treatment Health Maintenance Due Date Last Done Comments Hepatitis C Screening 1985 Varicella Vaccines (1 of 2 - 13+ 2-dose series) 1998 Depression Screening 08/14/2025 08/14/2024, 05/29/2024, 03/29/2023, Additional history exists Regular Well Visit/Exam 18-64 08/14/2025 08/14/2024, 12/16/2022, 02/03/2021 DTaP/Tdap/Td Vaccine (7 - Td or Tdap) 10/04/2028 10/04/2018, 04/08/2018, 03/03/2002, Additional history exists Hepatitis B Screening Completed 10/13/1996 , 04/28/1996, 04/28/1996, Additional history exists Covid-19 Vaccine Completed 03/07/2024, 03/2023, 03/23/2023, Additional history exists Influenza Vaccine Completed 04/03/2024, , 04/13/2022, Additional history exists HPV Vaccines Aged Out No longer eligi ble based on patient's age to complete this topic Pneumococcal vaccine <65 Aged Out No longer eligible based on patient's age to complete this topic Procedures Procedure Name Priority Date/Time Associated Diagnosis Comments MMR (IGG) PANEL (MEASLES, MUMPS, RUBELLA) Routine 08/21/2024 1:57 PM CDT Immunity status testing from Last 3 Months Results * (ABNORMAL) MMR (IGG) PANEL (MEASLES, MUMPS, RUBELLA) (08/21/2024 1:57 PM CDT) Measles (Rubeola) IgG 48.40 AU/mL [facility] Comment: AU/mL Interpretation ----- <13.50 Not consistent with immunity 13.50-16.49 Equivocal >16.49 Consistent with immunity The presence of measles IgG suggests immunization or past or current infection with measles virus. For additional information, please refer to http://education.EXPO/faq/BTU979 (This link is being provided for informational/ educational purposes only.) Mumps IgG <9.00(L) AU/mL [facility] Comment: AU/mL Interpretation ------- <9.00 [...] Maday [facility] BLOOD ORDERABLES Final Result [facility] [address] [place] [address] from Last 3 Months Insurance MEDICARE [facility] MEDICARE [facility] MEDICARE [facility] Address: [address] [address] [place] [address] Care Teams Insurance And Financial Services Agent Relationship Specialty Start Date End Date Maday Oliveros PA [address] [place] [address] PCP - General Internal Medicine 11/23/19
--- OUTSIDE RECORDS SUMMARY | 2024-11-20 13:12 | XMS_ITS | Clinical Summary ---
Author Organization [facility] Address [address] [facility] [place] [address] Care Team Providers Care Bridge Builder Name Role Phone Yuli Fry MD Primary Care Provider [phone] Source Comments [facility] [employer],non-owned Affiliates and Associated Physician Practices is amultiple site organization consisting of ambulatory clinics and hospital sitesin [place] and [place]. This disclosure is being madepursuant to the Care Everywhere program and may not contain all information available regarding this patient. Last updated 18.[facility] [employer] Allergies No known active allergies Medications * Be aware that medications may not be up to date on this document. Alwaysverify current medications with the patient. 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 Allergic rhinitis due to pollen 05/13/2019 Social History Tobacco Use Types Packs/Day Years Used Date Smoking Tobacco: Never Smokeless Tobacco: Never Sex and Gender Information Value Date Recorded Sex Assigned at Not on file Legal Sex Male 3:21 PM CDT Gender Identity Not on file Sexual Orientation Not on file Last Filed Vital Signs Vital Sign Reading Time Taken Comments Blood Pressure 118/60 04/28/2019 2:01 PM PHOTO MACHINE OPERATOR Pulse 69 04/28/2019 2:01 PM PHOTO MACHINE OPERATOR Temperature 37.1 C (98.7 F) 04/28/2019 2:01 PM PHOTO MACHINE OPERATOR Respiratory Rate 20 04/28/2019 2:01 PM PHOTO MACHINE OPERATOR Oxygen Saturation 99% 04/28/2019 2:01 PM PHOTO MACHINE OPERATOR Inhaled Oxygen Concentration - - Weight 94.3 kg (208 lb) 04/28/2019 2:01 PM PHOTO MACHINE OPERATOR Height 166.4 cm (5' 5.5) 04/28/2019 2:01 PM PHOTO MACHINE OPERATOR Body Mass Index 34.09 04/28/2019 2:01 PM PHOTO MACHINE OPERATOR Plan of Treatment Health Maintenance Due Date Last Done Comments HIV SCREENING 2000 HEPATITIS C SCREENING 05/03/2003 DTAP/TDAP/TD VACCINES (1 - Tdap) 2004 HEPATITIS B VACCINE (1 of 3 - 19+ 3-dose series) 2004 COVID-19 VACCINE (1 - 2023-2 5 season) 2024 DEPRESSION SCREENING 06/14/2024 INFLUENZA VACCINE (Season Ended) 2025 ZOSTER VACCINE (1 of 2) 2035 HIB VACCINE Aged Out No longer eligi ble based on patient's age to complete this topic HPV VACCINE Aged Out No longer eligi ble based on patient's age to complete this topic MENINGOCOCCAL (Group B) VACC INE SHARED DECISION-MAKING Aged Out No longer eligibl e based on patient's age to complete this topic MENINGOCOCCAL GROUPS A/C/Y/W VACCINE Aged Out No longer eligible b ased on patient's age to complete this topic PNEUMOCOCCAL VACCINE Aged Out No long er eligible based on patient's age to complete this topic Insurance [facility] Care Teams Bridge Builder Relationship Specialty Start Date End Date Yuli Fry MD [address] [place] [address] PCP - General 04/28/19
--- OUTSIDE RECORDS SUMMARY | 2024-11-20 13:57 | XMS_ITS | Clinical Summary ---
Author Organization [facility] Address [address] [facility] [place] [address] Care Team Providers Care Display Director Name Role Phone Yuli Fry MD Primary Care Provider [phone] Source Comments [facility] [employer],non-owned Affiliates and Associated Physician Practices is amultiple site organization consisting of ambulatory clinics and hospital sitesin [place], [place], [place] and [place]. This disclosure is being madepursuant to the Care Everywhere program and may not contain all information available regarding this patient. Last updated 18.[facility] [employer] Allergies No known active allergies Medications * [...] Comments Blood Pressure 118/60 04/28/2019 2:01 PM ELEVATED MOTORMAN Pulse 69 04/28/2019 2:01 PM ELEVATED MOTORMAN Temperature 37.1 C (98.7 F) 04/28/2019 2:01 PM ELEVATED MOTORMAN Respiratory Rate 20 04/28/2019 2:01 PM ELEVATED MOTORMAN Oxygen Saturation 99% 04/28/2019 2:01 PM ELEVATED MOTORMAN Inhaled Oxygen Concentration - - Weight 94.3 kg (208 lb) 04/28/2019 2:01 PM ELEVATED MOTORMAN Height 166.4 cm (5' 5.5) 04/28/2019 2:01 PM ELEVATED MOTORMAN Body Mass Index 34.09 04/28/2019 2:01 PM ELEVATED MOTORMAN Plan of Treatment Health Maintenance Due Date [...] patient's age to complete this topic Insurance [facility] Care Teams Display Director Relationship Specialty Start Date End Date Yuli Fry MD [address] [place] [address] PCP - General 04/28/19
--- OUTSIDE RECORDS SUMMARY | 2024-11-20 13:57 | XMS_ITS | Continuity of Care Document ---
Author Organization [facility] Address [address] [place] [address] [place] [address] Phone Care Team Providers Care Sustainability Consultant Name Role Phone Mari Lionhil Unavailable Unavailable Procedures Procedure Date Eye Exam, New Patient Advance Directives Directive Yes / No Effective Date File Name No Information Encounters Encounter Description Practice Location Reason(s) For Visit Diagnoses Date Provider Providers Copied on Encounter [facility], [id number] [place] [address] [address], [place], [place], [id number], [place] tel:[phone] [facility] No Information [address] [facility] [address], [address], [place]. tel:[phone] Referring Provider: Salazar Yeh OD, [address], [address]. tel:[phone] Family History Family Member Type Diagnosis Age At Onset No Information Payers Payer name Insurance type Covered republican ID Authoriza tion(s) Medicaid [facility] [id number] Social History Type Description Quantity Date Captured [...]
--- OUTSIDE RECORDS SUMMARY | 2024-11-20 13:57 | XMS_ITS | Referral Summary ---
Author Organization [facility] [address] [facility] Address [address] [place] [address] Care Team Providers Care Firewood Cutter Name Role Phone Maday Oliveros Primary Care Provider [phone]- [phone] Encounters Date Type Department Care Team Description 08/22/2024 Results Follow-Up [facility] Internal Medicine at [place] [address] [facility] [address] [place] [address] Maday Oliveros PA MMR (IGG) [...] Active sulfacetamide (BLEPH-10) 10 % ophthalmic solutionIndicat ions:[place]ody eye disease, unspecified laterality One drop into [...] 03/29/2023 Assessment & Plan (08/14/2024 8:39 AM FLOATING OPERATOR): Discussed the patient's BMI. The BMI is [...] hematology. Assessment & Plan (05/29/2024 12:07 PM FLOATING OPERATOR): Patient has had an abnormal CBC with elevated hemoglobin hematocrit. Patient is heterozygous for hemochromatosis gene. It does appear that he may be snoring iron. He has no symptoms. No icterus or jaundice. Will plan to get iron panel when he returns from [place] as he is going there for the [...] 04/20/2022 Assessment & Plan (08/14/2024 8:38 AM FLOATING OPERATOR): Discussed the patient's BMI. The BMI is above average. BMI management plan is completed. BMI Follow-up includes: nutrition counseling, exercise counseling and education provided. Assessment & Plan (04/20/2022 7:12 AM FLOATING OPERATOR): BMI Follow-up includes: Discussed diet and exercising counseling. History of 2019 novel coronavirus disease (COVID -19) 08/16/2021 Overview (08/16/2021): 06/2021 Assessment & Plan (08/16/2021 8:22 PM FLOATING OPERATOR): He is fully recovered from the COVID he had a few months ago while in [place]. He is guarding 1 make sure his lungs were clear they are. Continue to monitor follow-up if there are any more concerns Scalp lesion 05/11/2021 Assessment & Plan (05/11/2021 3:53 PM FLOATING OPERATOR): Refer to Derm for further evaluation Cracked [...] daily Assessment & Plan (05/11/2021 3:53 PM FLOATING OPERATOR): Increase Valtrexv to 1gm daily Keep lips moist and try to stop licking. 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 Continue daily suppression. Assessment & Plan (08/27/2020 9:28 AM CDT): [id number] are + for IgG --- Discussed using [...] diabetes. Assessment & Plan (08/16/2021 8:22 PM FLOATING OPERATOR): Check labs Assessment & Plan (08/18/2020 8:13 PM FLOATING OPERATOR): Pre-diabetes/hyperglycemia is a precursor to Dm. Stressed importance of working on diet (decrease your simple sugars and one carbohydrate with each meal) and increase you exercise to achieve weight loss and this will help prevent you from progressing to diabetes. Fatigue 08/18/2020 Assessment & Plan (12/20/2022 5:58 PM CDT): Probably multifactorial. Check labs and followup to re-evaluate Assessment & Plan (08/16/2021 8:22 PM FLOATING OPERATOR): Probably multifactorial. Check labs and followup to re-evaluate Assessment & Plan (08/18/2020 8:13 PM FLOATING OPERATOR): Probably multifactorial. Check labs and followup to re-evaluate Lip lesion 08/18/2020 Assessment & Plan (08/27/2020 9:26 AM CDT): Suspect HSV Assessment & Plan (08/18/2020 8:24 PM FLOATING OPERATOR): Unknown etiology---HSV vs angioedema vs allergies vs [...] Q10 Assessment & Plan (04/26/2022 5:34 PM FLOATING OPERATOR): Encouraged patient to follow low fat/low chol diet like the Mediterranean diet. Increase good fats in the diet. Increase exercise. Monitor labs as needed. Crestor 5mg Assessment & Plan (08/16/2021 8:22 PM FLOATING OPERATOR): Check labs Assessment & Plan (02/09/2021 9:38 [...] reassess Assessment & Plan (08/18/2020 8:13 PM FLOATING OPERATOR): Encouraged patient to follow fat/low chol diet [...] activities. Assessment & Plan (04/26/2022 5:34 PM FLOATING OPERATOR): No change in status Assessment & Plan (05/11/2021 3:53 PM FLOATING OPERATOR): No change Assessment & Plan (02/09/2021 9:38 [...] counselor and encourage them to contact the [facility] in [place]. Still awaiting records from previous PCP for immunizations, etc. Assessment & Plan (11/25/2019 1:57 PM CDT): No change Resolved Problems Problem Noted Date Diagnosed Date Resolved Date Acute right otitis media 05/29/2024 Assessment & Plan (05/29/2024 12:08 PM FLOATING OPERATOR): Patient has right otitis media. He is leaving for [place] at the end of the week and may have difficulty taking meds while he is there. Will go ahead and put him on Z-Bienvenido as directed. Continue [id number] cough cold medicine as needed. Call if symptoms worsen or do not resolve He also notices a drippy nose. Will send out some Flonase Acute cough 05/29/2024 08/26/2024 Assessment & Plan (05/29/2024 12:08 PM FLOATING OPERATOR): COVID and flu a and B were [...] months. Assessment & Plan (07/15/2022 8:14 PM FLOATING OPERATOR): The tubes look like they are functioning well and I do not find any significant problems. I recommended a follow-up in 6 months. Impacted cerumen of left ear 07/15/2022 08/28/2024 Assessment & Plan (07/15/2022 8:14 PM FLOATING OPERATOR): This was cleaned without difficulty mostly using suction and a loop. He tolerated well. Everything looks good. Obesity (BMI 30-39.9) 07/10/20212022 Assessment & Plan (04/20/2022 7:12 AM FLOATING OPERATOR): BMI Follow-up includes: Discussed diet and exercising counseling. Assessment & Plan (07/10/2021 2:17 PM FLOATING OPERATOR): Obesity is unchanged. Discussed the patient's BMI. The BMI is above average. BMI management plan is completed. BMI Follow-up includes: nutrition counseling, exercise counseling and education provided. BMI 33.0-33.9,adult 07/10/2021 04/20/20 Assessment & Plan (07/10/2021 2:17 PM FLOATING OPERATOR): Obesity is unchanged. Discussed the patient's BMI. The BMI is above average. BMI management plan is completed. BMI Follow-up includes: nutrition counseling, exercise counseling and education provided. Obesity (BMI 30-39.9) 04/23/20212021 Assessment & Plan (04/23/2021 3:37 PM FLOATING OPERATOR): Obesity is unchanged. Discussed the patient's BMI. The BMI is above average. BMI management plan is completed. BMI Follow-up includes: nutrition counseling, exercise counseling and education provided. BMI 33.0-33.9,adult 04/23/2021 07/10/19 22 Assessment & Plan (04/23/2021 3:37 PM FLOATING OPERATOR): Obesity is unchanged. Discussed the patient's BMI. [...] 08/12/20202020 Assessment & Plan (08/12/2020 9:05 AM FLOATING OPERATOR): Obesity is unchanged. Discussed the patient's BMI. The BMI is above average. BMI management plan is completed. BMI Follow-up includes: nutrition counseling, exercise counseling and education provided. BMI 33.0-33.9,adult 08/12/2020 08/28/19 21 Assessment & Plan (08/12/2020 9:05 AM FLOATING OPERATOR): Obesity is unchanged. Discussed the patient's BMI. [...] on file Legal Sex Male 11:23 PM FLOATING OPERATOR Gender Identity Not on file Sexual Orientation Not on file Occupation Industry Job Start Date Job End Date Disabed Not on file Not on file Not on file Last Filed Vital Signs Vital Sign Reading Time Taken Comments Blood Pressure 118/60 08/14/2024 8:34 AM FLOATING OPERATOR Pulse 71 08/14/2024 8:34 AM FLOATING OPERATOR Temperature 37.1 C (98.8 F) 08/14/2024 8:34 AM FLOATING OPERATOR Respiratory Rate 24 05/29/2024 10:29 AM FLOATING OPERATOR Oxygen Saturation 95% 08/14/2024 8:34 AM FLOATING OPERATOR Inhaled Oxygen Concentration - - Weight 89.8 kg (198 lb) 08/14/2024 8:34 AM FLOATING OPERATOR Height 165.1 cm (5' 5) 08/14/2024 8:34 AM FLOATING OPERATOR Body Mass Index 32.95 08/14/2024 8:34 AM FLOATING OPERATOR Plan of Treatment Not on file Procedures Procedure Name Priority Date/Time Associated Diagnosis Comments MMR (IGG) PANEL (MEASLES, MUMPS, RUBELLA) Routine 08/21/2024 1:57 PM CDT Immunity status testing from Last 3 Months Results * (ABNORMAL) MMR (IGG) PANEL (MEASLES, MUMPS, RUBELLA) (08/21/2024 1:57 PM CDT) Measles (Rubeola) IgG 48.40 AU/mL [facility] Comment: AU/mL Interpretation ----- <13.50 Not consistent with immunity 13.50-16.49 Equivocal >16.49 Consistent with immunity The presence of measles IgG suggests immunization or past or current infection with measles virus. For additional information, please refer to http://education.DangDang.com/faq/BRF059 (This link is being provided for informational/ educational purposes only.) Mumps IgG <9.00(L) AU/mL [facility] Comment: AU/mL Interpretation ------- <9.00 [...] WEBSTER LAB BLOOD ORDERABLES Final Result [facility] [address] [facility] [place] [address] from Last 3 Months Insurance MEDICARE [facility] MEDICARE [facility] MEDICARE Care Teams Firewood Cutter Relationship Specialty Start Date End Date Maday Oliveros PA [address] [facility] [address] [place], [place] [id number] PCP - General Internal Medicine 11/23/19
--- OUTSIDE RECORDS SUMMARY | 2024-11-20 13:57 | XMS_ITS | Clinical Summary ---
Author Organization [facility] [address] [facility] Address [address] [place] [address] Care Team Providers Care Core Shaper Top Name Role Phone Maday Oliveros Primary Care Provider +1- [phone] Allergies No known active allergies Medications ascorbic [...] Active sulfacetamide (BLEPH-10) 10 % ophthalmic solutionIndicat ions:[place] eye disease, unspecified laterality One drop into [...] 03/29/2023 Assessment & Plan (08/14/2024 8:39 AM PICKER BOX OPERATOR): Discussed the patient's BMI. The BMI [...] hematology. Assessment & Plan (05/29/2024 12:07 PM PICKER BOX OPERATOR): Patient has had an abnormal CBC with elevated hemoglobin hematocrit. Patient is heterozygous for hemochromatosis gene. It does appear that he may be snoring iron. He has no symptoms. No icterus or jaundice. Will plan to get iron panel when he returns from [place] as he is going there for the [...] 04/20/2022 Assessment & Plan (08/14/2024 8:38 AM PICKER BOX OPERATOR): Discussed the patient's BMI. The BMI is above average. BMI management plan is completed. BMI Follow-up includes: nutrition counseling, exercise counseling and education provided. Assessment & Plan (04/20/2022 7:12 AM PICKER BOX OPERATOR): BMI Follow-up includes: Discussed diet and exercising counseling. History of 2019 novel coronavirus disease (COVID -19) 08/16/2021 Overview (08/16/2021): 06/2021 Assessment & Plan (08/16/2021 8:22 PM PICKER BOX OPERATOR): He is fully recovered from the COVID he had a few months ago while in [place]. He is guarding 1 make sure his lungs were clear they are. Continue to monitor follow-up if there are any more concerns Scalp lesion 05/11/2021 Assessment & Plan (05/11/2021 3:53 PM PICKER BOX OPERATOR): Refer to Derm for further evaluation [...] daily Assessment & Plan (05/11/2021 3:53 PM PICKER BOX OPERATOR): Increase Valtrexv to 1gm daily Keep lips moist and try to stop licking. 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 Continue daily suppression. Assessment & Plan (08/27/2020 9:28 AM CDT): [id number] are + for IgG --- Discussed using [...] diabetes. Assessment & Plan (08/16/2021 8:22 PM PICKER BOX OPERATOR): Check labs Assessment & Plan (08/18/2020 8:13 PM PICKER BOX OPERATOR): Pre-diabetes/hyperglycemia is a precursor to Dm. [...] re-evaluate Assessment & Plan (08/16/2021 8:22 PM PICKER BOX OPERATOR): Probably multifactorial. Check labs and followup to re-evaluate Assessment & Plan (08/18/2020 8:13 PM PICKER BOX OPERATOR): Probably multifactorial. Check labs and followup to re-evaluate Lip lesion 08/18/2020 Assessment & Plan (08/27/2020 9:26 AM CDT): Suspect HSV Assessment & Plan (08/18/2020 8:24 PM PICKER BOX OPERATOR): Unknown etiology---HSV vs angioedema vs allergies [...] Q10 Assessment & Plan (04/26/2022 5:34 PM PICKER BOX OPERATOR): Encouraged patient to follow low fat/low chol diet like the Mediterranean diet. Increase good fats in the diet. Increase exercise. Monitor labs as needed. Crestor 5mg Assessment & Plan (08/16/2021 8:22 PM PICKER BOX OPERATOR): Check labs Assessment & Plan (02/09/2021 [...] reassess Assessment & Plan (08/18/2020 8:13 PM PICKER BOX OPERATOR): Encouraged patient to follow fat/low chol [...] activities. Assessment & Plan (04/26/2022 5:34 PM PICKER BOX OPERATOR): No change in status Assessment & Plan (05/11/2021 3:53 PM PICKER BOX OPERATOR): No change Assessment & Plan (02/09/2021 [...] counselor and encourage them to contact the [facility] in [place]. Still awaiting records from previous PCP for immunizations, etc. Assessment & Plan (11/25/2019 1:57 PM CDT): No change Resolved Problems Problem Noted Date Diagnosed Date Resolved Date Acute right otitis media 05/29/2024 Assessment & Plan (05/29/2024 12:08 PM PICKER BOX OPERATOR): Patient has right otitis media. He is leaving for [place] at the end of the week and may have difficulty taking meds while he is there. Will go ahead and put him on Z-Bienvenido as directed. Continue [id number] cough cold medicine as needed. Call if symptoms worsen or do not resolve He also notices a drippy nose. Will send out some Flonase Acute cough 05/29/2024 08/26/2024 Assessment & Plan (05/29/2024 12:08 PM PICKER BOX OPERATOR): COVID and flu a and B [...] months. Assessment & Plan (07/15/2022 8:14 PM PICKER BOX OPERATOR): The tubes look like they are functioning well and I do not find any significant problems. I recommended a follow-up in 6 months. Impacted cerumen of left ear 07/15/2022 08/28/2024 Assessment & Plan (07/15/2022 8:14 PM PICKER BOX OPERATOR): This was cleaned without difficulty mostly using suction and a loop. He tolerated well. Everything looks good. Obesity (BMI 30-39.9) 07/10/20212022 Assessment & Plan (04/20/2022 7:12 AM PICKER BOX OPERATOR): BMI Follow-up includes: Discussed diet and exercising counseling. Assessment & Plan (07/10/2021 2:17 PM PICKER BOX OPERATOR): Obesity is unchanged. Discussed the patient's BMI. The BMI is above average. BMI management plan is completed. BMI Follow-up includes: nutrition counseling, exercise counseling and education provided. BMI 33.0-33.9,adult 07/10/2021 04/20/20 Assessment & Plan (07/10/2021 2:17 PM PICKER BOX OPERATOR): Obesity is unchanged. Discussed the patient's BMI. The BMI is above average. BMI management plan is completed. BMI Follow-up includes: nutrition counseling, exercise counseling and education provided. Obesity (BMI 30-39.9) 04/23/20212021 Assessment & Plan (04/23/2021 3:37 PM PICKER BOX OPERATOR): Obesity is unchanged. Discussed the patient's BMI. The BMI is above average. BMI management plan is completed. BMI Follow-up includes: nutrition counseling, exercise counseling and education provided. BMI 33.0-33.9,adult 04/23/2021 07/10/19 Assessment & Plan (04/23/2021 3:37 PM PICKER BOX OPERATOR): Obesity is unchanged. Discussed the patient's [...] 08/12/20202020 Assessment & Plan (08/12/2020 9:05 AM PICKER BOX OPERATOR): Obesity is unchanged. Discussed the patient's BMI. The BMI is above average. BMI management plan is completed. BMI Follow-up includes: nutrition counseling, exercise counseling and education provided. BMI 33.0-33.9,adult 08/12/2020 08/28/19 Assessment & Plan (08/12/2020 9:05 AM PICKER BOX OPERATOR): Obesity is unchanged. Discussed the patient's [...] Department Care Team Description 08/22/2024 Results Follow-Up [facility] Internal Medicine at [place] [address] [place] [address] [address] [place] [address] Maday Oliveros PA MMR (IGG) [...] Unspecified 04/01/2018 MMR 12/12/1991,07/17/1988 OPV 09/30/1990, 7,1985,08/11,1985 [employer] SARS-CoV-2 Monovalent Vaccination (12+ Yrs) PURPLE 03/23/2023,08/07/2022,01/23/2022,09/17,08/26/2020 [...] on file Legal Sex Male 11:23 PM PICKER BOX OPERATOR Gender Identity Not on file Sexual Orientation Not on file Occupation Industry Job Start Date Job End Date Disabed Not on file Not on file Not on file Obstetrics History Last Filed Vital Signs Vital Sign Reading Time Taken Comments Blood Pressure 118/60 08/14/2024 8:34 AM PICKER BOX OPERATOR Pulse 71 08/14/2024 8:34 AM PICKER BOX OPERATOR Temperature 37.1 C (98.8 F) 08/14/2024 8:34 AM PICKER BOX OPERATOR Respiratory Rate 24 05/29/2024 10:29 AM PICKER BOX OPERATOR Oxygen Saturation 95% 08/14/2024 8:34 AM PICKER BOX OPERATOR Inhaled Oxygen Concentration - - Weight 89.8 kg (198 lb) 08/14/2024 8:34 AM PICKER BOX OPERATOR Height 165.1 cm (5' 5) 08/14/2024 8:34 AM PICKER BOX OPERATOR Body Mass Index 32.95 08/14/2024 8:34 AM PICKER BOX OPERATOR Plan of Treatment Health Maintenance Due [...] PM CDT) Measles (Rubeola) IgG 48.40 AU/mL [facility] Comment: AU/mL Interpretation ----- <13.50 Not consistent with immunity 13.50-16.49 Equivocal >16.49 Consistent with immunity The presence of measles IgG suggests immunization or past or current infection with measles virus. For additional information, please refer to http://education.Lifeenergy/faq/ZEN370 (This link is being provided for informational/ educational purposes only.) Mumps IgG <9.00(L) AU/mL [facility] Comment: AU/mL Interpretation ------- <9.00 [...] Maday [facility] BLOOD ORDERABLES Final Result [facility] [address] [place] [address] from Last 3 Months Insurance MEDICARE [facility] MEDICARE [facility] MEDICARE Care Teams Core Shaper Top Relationship Specialty Start Date End Date Maday Oliveros PA [address] [facility] [address] [place] [address] PCP - General Internal Medicine 11/23/19
[2024-11-20 14:45] VITALS: BP 127/85; PULSE 68; RESP 18; O2SAT 97
--- NOTE | 2024-11-20 14:50 | ED_ITS ---
HPI - General Adult General Chief complaint: Neuro Symptoms/Deficit Stated complaint: facial drooping, slurred speech? Time Seen by Provider: 11/20/24 12:01 History of Present Illness HPI narrative: This is a 39-year-old male with Down syndrome /oral HSV and high cholesterol presenting for right-sided facial droop. Indications limited due to his Down's syndrome. Per the family and the patient he woke up this morning was drooling and having trouble drinking without dribbling water down his chin. He does not have any other neurologic defects like visual changes extremity weakness confusion. Patient is on Valcyte varicose he gets recurrent sores. No history of Odonnell's palsy. Related Data Home Medications ?Medication ?Instructions ?Recorded ?Confirmed ?Last Taken ?Type cetirizine 10 mg tablet (Zyrtec) 10 mg PO DAILY 07/08/19 07/08/19 Unknown History multivitamin with minerals-folic mg PO 07/08/19 Unknown History acid 0.4 mg tablet (Adult One Daily Multivitamin) Allergies Allergy/AdvReac Type Severity Reaction Status Date / Time cefaclor Allergy Unknown Other Verified 02/13/23 17:00 [facility] Past Medical History Medical History (Updated 11/20/24 @ 14:56 by Napoleon Stubbs MD) Fracture of hand left Down syndrome high functioning Surgical History Surgical History (Updated 02/13/23 @ 17:17 by Juany Sanz NP) History of placement of ear tubes Family History Family History Father Asthma Family history of hypercholesterolemia Hypertension Social History Social History Smoking status: Never smoker Second hand tobacco smoke exposure: No Alcohol intake: never Exam 2 Narrative: APPEARANCE: No apparent distress. Head: atraumatic. Unable visual TMs due to cerumen impaction EYES: EOMI, extraocular eye movements intact no conjunctival injection NOSE: Atraumatic, NECK: Trachea midline RESPIRATORY: No increased rate of breathing CARDIOVASCULAR: RRR, ABDOMINAL: Non-distended MUSCULOSKELETAl: No obvious deformities NEURO: Alert. Right-sided facial droop without forehead sparing on the right, Sensation light touch, motor function cerebellar function intact for 4 extremities. Gait exam was normal. SKIN:: Warm, dry. Normal color PSYCHIATRIC: Normal affect Course Vital Signs Vital signs: Vital Signs Temperature 98.3 F 11/20/24 11:45 Pulse Rate 69 11/20/24 11:45 Respiratory Rate 16 11/20/24 11:45 Blood Pressure 128/81 11/20/24 11:45 Pulse Oximetry 98 11/20/24 11:45 Oxygen Delivery Room Air 11/20/24 11:45 Temperature 98.3 F 11/20/24 11:45 Pulse Rate 66 11/20/24 12:48 Respiratory Rate 14 11/20/24 12:48 Blood Pressure 125/80 11/20/24 12:48 Pulse Oximetry 99 11/20/24 12:48 Oxygen Delivery Room Air 11/20/24 11:45 Medical Decision Making MDM Narrative Medical decision making narrative: -Course: 39-year-old male down syndrome, recurrent HSV infections and hyper cholesterol presenting for right-sided facial droop. Last known normal was last night before he went to bed. CTA unremarkable. 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 This is even more likely given his history of recurrent cold sores. Patient given 80 mg of prednisone. He will be restarted on his valacyclovir. Given primary care follow-up and return precautions. -DDX includes but is not limited to: Stroke, Odonnell's palsy -Co-morbidities complicating care: Down syndrome, recurrent cold sores Vital Signs Vital Signs: Vital Signs Temperature 98.3 F 11/20/24 11:45 Pulse Rate 69 11/20/24 11:45 Respiratory Rate 16 11/20/24 11:45 Blood Pressure 128/81 11/20/24 11:45 Pulse Oximetry 98 11/20/24 11:45 Oxygen Delivery Room Air 11/20/24 11:45 Temperature 98.3 F 11/20/24 11:45 Pulse Rate 66 11/20/24 12:48 Respiratory Rate 14 11/20/24 12:48 Blood Pressure 125/80 11/20/24 12:48 Pulse Oximetry 99 11/20/24 12:48 Oxygen Delivery Room Air 11/20/24 11:45 Lab Data 11/20/24 12:30 11/20/24 12:30 Labs: Lab Results 11/20/24 11/20/24 Range/Units 12:27 12:30 WBC 6.4 (4.5-10.0) K/mm3 RBC 5.69 (4.6-6.20) M/mm3 Hgb 18.7 H (14.0-18.0) g/dL Hct 54.6 H (42.0-52.0) % MCV 96.0 (80-100) fl MCH 32.9 (26-34) pg MCHC 34.2 (32-36) g/dl RDW 13.2 (11.5-14.5) % Plt Count 173 (150-375) k/mm3 MPV 10.1 (7.4-10.4) fl Immature Gran % (Auto) 0.3 (0-0.5) % Neut % (Auto) 48.4 (45.5-73.1) % Lymph % (Auto) 37.4 (18.3-44.2) % Kenton % (Auto) 11.7 H (2.6-8.5) % Eos % (Auto) 1.1 (0-4.4) % Baso % (Auto) 1.1 (0.2-1.2) % Lymph # (Auto) 2.40 (0.9-3.2) K/mm3 [place]on # (Auto) 0.8 H (0.1-0.6) K/mm3 Eos # (Auto) 0.1 (0-0.3) K/mm3 Baso # (Auto) 0.1 (0.0-0.1) K/mm3 Abs Immat Gran (auto) 0.02 (0.00-0.031) K/mm3 Absolute Neuts (auto) 3.1 (1.3-6.7) K/mm3 Absolute Nucleated RBC 0.000 (0.0-0.012) K/mm3 Nucleated RBC % 0.0 (0.0-0.2) % Sodium 142 (137-145) mmol/L Potassium 3.9 (3.4-5.0) mmol/L Chloride 104 (98-107) mmol/L Carbon Dioxide 27 (22-30) mmol/L Anion Gap 11 (4-12) mmol/L BUN 18 (9-20) mg/dL Creatinine 0.86 (0.7-1.3) mg/dL Estim Creat Clear Calc 105 ml/min Estimated GFR > 60 (59 - ) Glucose 75 (65-110) mg/dL POC Capillary Glucose 70 (65-105) mg/dl Calcium 9.4 (8.4-10.2) mg/dL Magnesium 2.3 (1.6-2.3) mg/dL Total Bilirubin 0.6 (0.2-1.3) mg/dL AST 35 (17-59) U/L ALT 61 H (6-50) U/L Alkaline Phosphatase 77 (38-126) U/L Total Protein 7.7 (6.3-8.2) g/dL Albumin 4.4 (3.5-5.1) g/dL Discharge Plan Discharge Clinical Impression: Down syndrome, Odonnell's palsy Patient Disposition: Home Condition: Stable Instructions: Antibiotic Form, Odonnell Palsy (ED) Additional Instructions: Josh was seen emergency department for right-sided facial paralysis. This is Odonnell's palsy. Please take the steroids as instructed and resume his valacyclovir 3 times daily. Use lubricant eyedrops at night if you develops eye irritation. Please follow-up with an road machinery inspector and her primary care physician for further management. [facility] [phone] Patient Language: Marshallese Prescriptions: New prednisone 20 mg tablet 80 mg PO DAILY 7 Days Qty: 28 0RF valacyclovir [Valtrex] 1 gram tablet 1,000 mg PO Q8H 7 Days Qty: 21 0RF No Action cetirizine [Zyrtec] 10 mg Tablet 10 mg PO DAILY Adult One Daily Multivitamin 0.4 mg Tablet PO ibuprofen 800 mg tablet 800 mg PO Q6H PRN (Reason: pain) Qty: 30 0RF mupirocin 2 % ointment 1 applic topical BID Qty: 22 0RF cephalexin 500 mg capsule 500 mg PO Q8H Qty: 21 0RF Follow-up/Referrals: Arlin,ELEANOR Nassar [Primary Care Provider] -
== END 2024-11-20 15:31 | disposition home or self-care (01) ==
PROVIDERS: Emergency Provider Emergency Medicine; PCP Physician Assistant
DX: G51.0 Bell's palsy (principal); Q90.9 Down syndrome, unspecified; E78.00 Pure hypercholesterolemia, unspecified; R94.31 Abnormal electrocardiogram [ECG] [EKG]
CPT/HCPCS: 36415; 70496; 70498; 71045; 80053; 82948; 83735; 85025; 93005; 99284; J7512; Q9967